=== PATIENT | male | born 2000 | race Caucasian/White ===

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

== ENCOUNTER 2021-04-04 02:21 | Emergency (ER) | payer MEDICAID ==
[2021-04-04] MEDS ORDERED: LORazepam 0.5 MG Tab PO ONE (02:43)
== END 2021-04-04 02:55 | disposition home or self-care (01) ==
LOC: MW.ED 02:21
DX: F41.9 Anxiety disorder, unspecified (principal); Z72.0 Tobacco use
CPT/HCPCS: 93005; 99283; A9270

== ENCOUNTER 2022-01-25 14:18 | Emergency (ER) | payer BC, MEDICAID | END 2022-01-25 18:38 | disposition home or self-care (01) | LOC: MW.ED 14:18 | DX: S02.40DA Maxillary fracture, left side, initial encounter for closed fracture (principal); F17.210 Nicotine dependence, cigarettes, uncomplicated; Y04.0XXA Assault by unarmed brawl or fight, initial encounter | CPT/HCPCS: 70450; 70450-26; 70486; 70486-26; 99283 ==

== ENCOUNTER 2022-11-22 13:16 | Emergency (ER) | payer SELFPAY | END 2022-11-22 17:30 | disposition left against medical advice (07) | LOC: MW.ED 13:16 | DX: Z53.21 Procedure and treatment not carried out due to patient leaving prior to being seen by health care provider (principal) ==

== ENCOUNTER 2025-02-09 09:49 | Emergency (ER) | payer MEDICAID, OTHER | END 2025-02-09 12:48 | disposition home or self-care (01) | LOC: MW.ED 09:49 | DX: S50.11XA Contusion of right forearm, initial encounter (principal); Y92.149 Unspecified place in prison as the place of occurrence of the external cause; Z79.899 Other long term (current) drug therapy; Z75.3 Unavailability and inaccessibility of health-care facilities; Y04.8XXA Assault by other bodily force, initial encounter | CPT/HCPCS: 73090-26-RT; 73090-RT; 99283; 99284 ==